=== PATIENT | male | born 1995 | race Caucasian/White ===

== ENCOUNTER 2017-07-28 13:56 | Emergency (ER) | payer OTHER ==
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
[2017-07-28 15:27] VITALS: BP 119/66
== END 2017-07-28 15:17 | disposition home or self-care (01) ==
LOC: ER 13:56
DX: S30.22XA Contusion of scrotum and testes, initial encounter (principal); W50.0XXA Accidental hit or strike by another person, initial encounter; F17.200 Nicotine dependence, unspecified, uncomplicated